=== PATIENT | female | born 1945 | race Caucasian/White ===

== ENCOUNTER 2016-12-10 05:29 | Emergency (ER) | payer MEDICARE ==
--- NOTE | 2016-12-14 19:20 | ER ---
ADMIT: 12/10/2016 RM/LOC: ER [facility] MR#: [id number] [facility] [id number] MATY ROD [address] [place] [address] Emergency Room Report SEX: F AGE: 71 : 1945 DATE: 12/10/2016 Patient is a 71-year-old female who awoke at 4:00 a.m. with vertigo. Denies any tinnitus or hearing loss, or focal deficit, transported by [facility]. Exam remarkable for nontoxic, afebrile female, responded well to meclizine, which she had in her own possession, but did not know to take. Zofran was given in the field and repeated in department with relief of nausea and vomiting. Road tested well. Did become somewhat hypertensive in the department, requiring clonidine, lisinopril and hydrochlorothiazide with appropriate blood pressure response. Strongly I encouraged using the meclizine regularly for vertigo and Zofran as needed. Follow up Dr. Gannon as needed. Abundio Perez MD/ shirlene JOB #: [id number] CC: Abundio Perez MD, Attending Physician Sal Kat MD, Family Physician
== END 2016-12-10 07:00 | disposition home or self-care (01) ==
LOC: ER 05:29
DX: H81.10 Benign paroxysmal vertigo, unspecified ear (principal); I10 Essential (primary) hypertension; Z95.5 Presence of coronary angioplasty implant and graft; Z88.0 Allergy status to penicillin

== ENCOUNTER → 2016-12-30 | Outpatient (CLI) | payer MEDICARE | END | disposition home or self-care (01) | LOC: RAD.S 12-16 14:30 | DX: I65.22 Occlusion and stenosis of left carotid artery (principal) ==

== ENCOUNTER → 2017-01-17 | Outpatient (CLI) | payer MEDICARE | END | disposition home or self-care (01) | LOC: RAD.S 01-15 09:00 → PTH.S 13:30 → RAD.S 13:59 | DX: R42 Dizziness and giddiness (principal); R93.8 Abnormal findings on diagnostic imaging of other specified body structures ==